=== PATIENT | female | born 1985 | race Caucasian/White ===

== ENCOUNTER 2017-02-03 16:31 | Emergency (ER) | payer SELFPAY ==
[~2017-02-03] VITALS: Ht 167.6 cm; Wt 47.6 kg
[~2017-02-03 16:31] MED LIST: CEFU500T PO; CYCL10TA9 PO; HYDR-3730 PO; MELO15TA14 PO; PREN1TAB39 PO; SULF1TAB35 PO; TRAM50TA2 PO; cefzil
--- OUTSIDE RECORDS SUMMARY | 2017-02-03 16:38 | XMS REPORT | Continuity of Care Document ---
Author Author [facility] Organization [facility] Address Unknown Phone Unavailable Care Team Providers Care Orthopaedic Technologist Name Role Phone JOSE JUAN BRYAN MD PCP Insurance Providers Payer Name Policy Number Subscriber Name Relationship [facility] [id number] Jung Olivares 18 Self / Same As Patient Advance Directives Directive Response Recorded Date/Time Advance Directives No 04/19/16 12:12pm Organ Donor No 08/18/11 8:30am Resuscitation Status Full Code 04/19/16 12:12pm Problems No problem information available. Medications Current Home Medications Medication Dose Units Route Directions Days/Qty Instructions Start Date Meloxicam 15 Mg 15 Mg Oral Daily as needed for Pain 04/19/16 Cyclobenzaprine Hcl 10 Mg 10 Mg Oral Three Times A Day as needed for Muscle Spasms 04/19/16 Past Home Medications Medication Directions Ordered Status Vits W-Ca,Fe,Fa(<1MG) 1 Each Tablet, 1 Tab Oral Daily 02/18/11 Discontinued Social History Social History Problem Response Recorded Date/Time Alcohol Use Occasionally Uses 04/19/2016 12:12pm Recreational Drug Use No 04/19/2016 12:12pm Recent Foreign Travel No 02/21/2014 2:56pm Recent Infectious Disease Exposure No 02/21/2014 2:56pm Hospitalization with Isolation Denies 04/19/2016 12:12pm Sexually Transmitted Disease No 02/21/2014 2:56pm Smoking Status Current Everyday Smoker 04/19/2016 12:15pm Query Response Start Date Stop Date Smoking Status Current Everyday Smoker Hospital Discharge Instructions No hospital discharge instructions. Plan of Care Discharge Date 04/19/16 12:19pm Prescriptions See Medication Section Functional Status No functional status results. Allergies, Adverse Reactions, Alerts No known allergies. Immunizations No immunization records. Vital Signs Acute Vital Signs Vital Response Date/Time Height (Feet) 5 feet 04/19/2016 12:12pm Height (Inches) 6.00 inches 04/19/2016 12:12pm Height (Calculated Centimeters) 167.044303 cm 04/19/2016 12:12pm Weight (Pounds) 111 pounds 04/19/2016 12:12pm Weight (Ounces) 0.0 oz 04/19/2016 12:12pm Weight (Calculated Grams) 68109.754 gm 04/19/2016 12:12pm Weight (Calculated Kilograms) 50.807259 kilograms 04/19/2016 12:12pm Calculated BMI 18.47 04/19/2016 12:12pm Results No known relevant diagnostic tests, laboratory data and/or discharge summary. Procedures No known history of procedures. Encounters Encounter Location Arrival/Admit Date Discharge/Depart Date Attending Provider Registered Clinic [facility] 04/19/16 12:11pm JOHNATHON ZEPEDA MD
[2017-02-03] MEDS ORDERED: Gabapentin (17:03)
[2017-02-03 17:19] LABS: BASOPHILS % (AUTO) 0 % (0-10); EOSINOPHILS # (AUTO) 0.2 10^3/uL (0.0-0.3); EOSINOPHILS % (AUTO) 3 % (0-10); LYMPHOCYTES # (AUTO) 2.4 X 10^3 (1.0-4.0); LYMPHOCYTES % (AUTO) 35 % (12-44); MEAN CORPUSCULAR HEMOGLOBIN 33 PG (25-34); MEAN CORPUSCULAR HGB CONC 35 G/DL (32-36); MEAN CORPUSCULAR VOLUME 92 FL (80-99); MONOCYTES # (AUTO) 0.5 X 10^3 (0.0-1.0); MONOCYTES % (AUTO) 8 % (0-12); NEUTROPHILS # (AUTO) 3.8 X 10^3 (1.8-7.8); NEUTROPHILS % (AUTO) 55 % (42-75); PLATELET COUNT 211 10^3/uL (130-400); RED BLOOD COUNT 4.29 10^6/uL (4.35-5.85); RED CELL DISTRIBUTION WIDTH 12.2 % (10.0-14.5); WHITE BLOOD COUNT 6.9 10^3/uL (4.3-11.0)
[2017-02-03 17:20] LABS: BILIRUBIN,URINE NEGATIVE (NEGATIVE); KETONES,URINE NEGATIVE (NEGATIVE); LEUKOCYTE ESTERASE ,URINE 2+ (NEGATIVE); NITRITE,URINE NEGATIVE (NEGATIVE); PH,URINE 6 (5-9); PROTEIN,URINE 1+ (NEGATIVE); UROBILINOGEN,URINE NORMAL (NORMAL)
[2017-02-03 17:39] LABS: ALANINE AMINOTRANSFERASE 18 U/L (0-55); ALBUMIN 4.2 G/DL (3.2-4.5); ANION GAP 8 MMOL/L (5-14); ASPARTATE AMINO TRANSFERASE 21 U/L (5-34); BILIRUBIN,TOTAL 0.5 MG/DL (0.1-1.0); BLOOD UREA NITROGEN 13 MG/DL (7-18); BUN/CREATININE RATIO 19; CALCIUM 8.7 MG/DL (8.5-10.1); CARBON DIOXIDE 22 MMOL/L (21-32); CHLORIDE 106 MMOL/L (98-107); GFR ESTIMATED > 60; GLUCOSE 94 MG/DL (70-105); POTASSIUM 3.6 MMOL/L (3.6-5.0); SODIUM 136 MMOL/L (135-145); TOTAL PROTEIN 6.6 G/DL (6.4-8.2)
--- NOTE | 2017-02-03 17:54 | Diagnostic Imaging Report ---
PROCEDURE: CT head without contrast. TECHNIQUE: Multiple contiguous axial images were obtained through the brain without the use of intravenous contrast. INDICATION: Seizure last night. COMPARISON STUDY: CT head from February 21, 2014. FINDINGS: Noncontrast CT scanning of the head demonstrates no mass effect, midline shift, hemorrhage or extra-axial fluid collections. Hope-white matter differentiation is normal. The ventricles, cortical sulci and basilar cisterns appear normal. There is normal appearance of the bone windows. IMPRESSION: Normal CT scan of the head. Dictated by: Dictated on workstation # [id number]
[2017-02-03] MEDS ORDERED: SULF1TAB35 PO (18:04)
--- NOTE | 2017-02-03 18:04 | ED General ---
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 Worked today 9-3. Pt at times answers questions briskly other times very slow to think. Nursing Sepsis Screen: No Definite Risk Source of Information: Patient Exam Limitations: No Limitations History of Present Illness Time Seen by Provider: 18:01 Initial Comments To ER with reports of a possible seizure last night though there was nothing witnessed by anyone. She states that she awakened this morning and felt somewhat disoriented and "foggy". She states that she is diffusely achy but is without fevers chills nausea vomiting back pain dysuria constipation or diarrhea. She states that she had a seizure in 2007 which manifested as her slumping over on the couch and then stiffening up and jerking. She is not on any seizure medications. She sees Dr. Dunaway at the [facility] and her only medication is gabapentin which she states that she takes for Crohn's disease. 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 Timing/Duration: 1-2 Days Severity: Moderate Associated Systoms: No Chest Pain, No Cough, No Diaphoresis, No Fever/Chills Allergies and Home Medications Allergies Coded Allergies: No Known Drug Allergies (Verified , 06/22/09) Home Medications (Reported) Constitutional: see HPINo chills, No fever EENTM: see HPI Respiratory: no symptoms reported Cardiovascular: no symptoms reported Genitourinary: no symptoms reported Musculoskeletal: see HPI other (diffuse body achiness) Skin: no symptoms reported Psychiatric/Neurological: No Symptoms Reported Hematologic/Lymphatic: No Symptoms Reported Immunological/Allergic: no symptoms reported Past Nuvljdi-Ttroyp-Ggtjdy Hx Patient Social History Alcohol Use: Rarely Uses Recreational Drug Use: No Smoking Status: Current Everyday Smoker Type Used: Cigarettes Recent Foreign Travel: No Contact w/Someone Who Travel: No Recent Infectious Disease Expo: No Recent Hopitalizations: No Seasonal Allergies Seasonal Allergies: No Surgeries HX Surgeries: Yes (D and C/vag delivery x 3, Tailbone cyst) Surgeries: Gallbladder Respiratory Hx Respiratory Disorders: No Cardiovascular Hx Cardiac Disorders: No Neurological Hx Neurological Disorders: No (Thinks a seizure in 2007/undiagnosed) Reproductive System : No Hx Reproductive Disorders: No Sexually Transmitted Disease: No Genitourinary Hx Genitourinary Disorders: No Gastrointestinal Hx Gastrointestinal Disorders: Yes Gastrointestinal Disorders: Crohns Disease Musculoskeletal Hx Musculoskeletal Disorders: Yes (Gabapentin for hip spasms/argueta) Endocrine Hx Endocrine Disorders: No HEENT HX ENT Disorders: No Cancer Hx Cancer: No Psychosocial Hx Psychiatric Problems: No Integumentary HX Skin/Integumentary Disorder: No Blood Transfusions Hx Blood Disorders: No Adverse Reaction to a Blood Tr: No Physical Exam Vital Signs Vital Sign - Last 12Hours 02/03/17 16:48 Temp 98.3 Pulse 75 Resp 16 B/P 107/76 Pulse Ox 96 O2 Delivery Room Air Capillary Refill : Less Than 3 Seconds General Appearance: No Apparent Distress WD/WN Eyes: Bilateral Eye EOMI, Bilateral Eye Normal Inspection, Bilateral Eye PERRL HEENT: PERRL/EOMI TMs Normal Neck: Full Range of Motion Normal Inspection Respiratory: Chest Non Tender Lungs Clear Normal Breath Sounds No Accessory Muscle Use No Respiratory Distress Cardiovascular: Regular Rate, Rhythm Normal Peripheral Pulses Gastrointestinal: Normal Bowel Sounds Non Tender Soft Extremity: Normal Capillary Refill Normal Inspection Neurologic/Psychiatric: Alert Oriented x3 No Motor/Sensory Deficits Skin: Normal Color Warm/Dry Focused Exam Lactic Acid Level Laboratory Tests Test 02/03/17 17:10 Alanine Aminotransferase (ALT/SGPT) 18U/L (0-55) Albumin 4.2G/DL (3.2-4.5) Alkaline Phosphatase 56U/L (40-136) Anion Gap 8MMOL/L (5-14) Aspartate Amino Transf (AST/SGOT) 21U/L (5-34) BUN/Creatinine Ratio 19 Blood Urea Nitrogen 13MG/DL (7-18) Calcium Level 8.7MG/DL (8.5-10.1) Carbon Dioxide Level 22MMOL/L (21-32) Chloride Level 106MMOL/L (98-107) Creatinine 0.70MG/DL (0.60-1.30) Estimat Glomerular Filtration Rate > 60 Glucose Level 94MG/DL (70-105) Potassium Level 3.6MMOL/L (3.6-5.0) Sodium Level 136MMOL/L (135-145) Total Bilirubin 0.5MG/DL (0.1-1.0) Total Protein 6.6G/DL (6.4-8.2) Progress/Results/Core Measures Results/Orders Lab Results Laboratory Tests Test 02/03/17 17:07 02/03/17 17:10 Range/Units Ur Tricyclic Antidepressants Screen NEGATIVE NEGATIVE Urine Amphetamines Screen NEGATIVE NEGATIVE Urine Bacteria LARGE H /HPF Urine Barbiturates Screen NEGATIVE NEGATIVE Urine Benzodiazepines Screen NEGATIVE NEGATIVE Urine Bilirubin NEGATIVE NEGATIVE Urine Cannabinoids Screen NEGATIVE NEGATIVE Urine Casts NONE /LPF Urine Clarity SLIGHTLY CLOUDY Urine Cocaine Screen NEGATIVE NEGATIVE Urine Color YELLOW Urine Crystals NONE /LPF Urine Culture Indicated YES Urine Glucose (UA) NEGATIVE NEGATIVE Urine Ketones NEGATIVE NEGATIVE Urine Leukocyte Esterase 2+ H NEGATIVE Urine Methadone Screen NEGATIVE NEGATIVE Urine Methamphetamines Screen NEGATIVE NEGATIVE Urine Mucus NEGATIVE /LPF Urine Nitrite NEGATIVE NEGATIVE Urine Opiates Screen NEGATIVE NEGATIVE Urine Oxycodone Screen NEGATIVE NEGATIVE Urine Phencyclidine Screen NEGATIVE NEGATIVE Urine Propoxyphene Screen NEGATIVE NEGATIVE Urine Protein 1+ H NEGATIVE Urine RBC 5-10 H /HPF Urine RBC (Auto) 4+ H NEGATIVE Urine Specific [place] 1.020 1.016-1.022 Urine Squamous Epithelial Cells 5-10 /HPF Urine Urobilinogen NORMAL NORMAL MG/DL Urine WBC 5-10 H /HPF Urine pH 6 5-9 Alanine Aminotransferase (ALT/SGPT) 18 0-55 U/L Albumin 4.2 3.2-4.5 G/DL Alkaline Phosphatase 56 40-136 U/L Anion Gap 8 5-14 MMOL/L Aspartate Amino Transf (AST/SGOT) 21 5-34 U/L BUN/Creatinine Ratio 19 Basophils # (Auto) 0.0 0.0-0.1 10^3/uL Basophils (%) (Auto) 0 0-10 % Blood Urea Nitrogen 13 7-18 MG/DL Calcium Level 8.7 8.5-10.1 MG/DL Carbon Dioxide Level 22 21-32 MMOL/L Chloride Level 106 98-107 MMOL/L Creatinine 0.70 0.60-1.30 MG/DL Eosinophils # (Auto) 0.2 0.0-0.3 10^3/uL Eosinophils (%) (Auto) 3 0-10 % Estimat Glomerular Filtration Rate > 60 Glucose Level 94 70-105 MG/DL Hematocrit 40 35-52 % Hemoglobin 14.0 11.5-16.0 G/DL Lymphocytes # (Auto) 2.4 1.0-4.0 X 10^3 Lymphocytes (%) (Auto) 35 12-44 % Mean Corpuscular Hemoglobin 33 25-34 PG Mean Corpuscular Hemoglobin Concent 35 32-36 G/DL Mean Corpuscular Volume 92 80-99 FL Mean Platelet Volume 11.0 H 7.4-10.4 FL Monocytes # (Auto) 0.5 0.0-1.0 X 10^3 Monocytes (%) (Auto) 8 0-12 % Neutrophils # (Auto) 3.8 1.8-7.8 X 10^3 Neutrophils (%) (Auto) 55 42-75 % Platelet Count 211 130-400 10^3/uL Potassium Level 3.6 3.6-5.0 MMOL/L Red Blood Count 4.29 L 4.35-5.85 10^6/uL Red Cell Distribution Width 12.2 10.0-14.5 % Sodium Level 136 135-145 MMOL/L Total Bilirubin 0.5 0.1-1.0 MG/DL Total Protein 6.6 6.4-8.2 G/DL White Blood Count 6.9 4.3-11.0 10^3/uL My Orders Orders-AINSLEY ENAMORADO APRN Cbc With Automated Diff (02/03/17 17:07) Comprehensive Metabolic Panel (02/03/17 17:07) Ua Culture If Indicated (02/03/17 17:07) Drug Screen Stat (Urine) (02/03/17 17:07) Urine Bedside (02/03/17 17:07) Ct Head Wo (02/03/17 17:07) Urine Culture (02/03/17 17:07) Vital Signs/I&O Vital Sign - Last 12Hours 02/03/17 16:48 Temp 98.3 Pulse 75 Resp 16 B/P 107/76 Pulse Ox 96 O2 Delivery Room Air Blood Pressure Mean: 86 Diagnostic Imaging Diagonstic Imaging: Xray Plain Films/CT/US/NM/MRI: chest Comments NAME: JUNG TREJO MED REC#: [id number] PT STATUS: REG ER : 1985 PHYSICIAN: AINSLEY ENAMORADO APRN ADMIT DATE: 02/03/17/ER Signed Date of Exam:02/03/17 CT HEAD WO PROCEDURE: CT head without contrast. TECHNIQUE: Multiple contiguous axial images were obtained through the brain without the use of intravenous contrast. INDICATION: Seizure last night. COMPARISON STUDY: CT head from February 21, 2014. FINDINGS: Noncontrast CT scanning of the head demonstrates no mass effect, midline shift, hemorrhage or extra-axial fluid collections. Hope-white matter differentiation is normal. The ventricles, cortical sulci and basilar cisterns appear normal. There is normal appearance of the bone windows. IMPRESSION: Normal CT scan of the head. Dictated by: Dictated on workstation # [id number] Dict: 02/03/171733 Trans: 02/03/171751 SLIM [id number] Interpreted by: ABEL GARCIA MD Electronically signed by: ABEL GARCIA MD 02/03/171753 Departure Impression Impression: Primary Impression: Urinary tract infection Qualified Code: N30.00 - Acute cystitis without hematuria Disposition: HOME, SELF-CARE Condition: Stable Departure-Patient Inst. Decision time for Depature: 18:03 Referrals: JOSE JUAN DUNAWAY MD (PCP/Family) Primary Care Physician Patient Instructions: Urinary Tract Infection, Adult (DC) Add. Discharge Instructions: 1. Antibiotics as directed 2. Return to ER for any concerns 3. See Dr. Dunaway asked week for recheck and to discuss further evaluation if you're still having symptoms All discharge instructions reviewed with patient and/or family. Voiced understanding. Scripts Sulfamethoxazole/Trimethoprim (Bactrim Ds Tablet)1 Each Tablet1 Each PO BID #10 TAB Prov:AINSLEY ENAMORADO APRN 02/03/17 AINSLEY ENAMORADO APRN Feb 03, 2017 18:04
[2017-02-03 18:10] VITALS: BP 102/68
== END 2017-02-03 18:10 | disposition home or self-care (01) ==
LOC: EDUNIT# 16:31 → ER 16:34
DX: N39.0 Urinary tract infection, site not specified (principal); K50.90 Crohn's disease, unspecified, without complications; F17.210 Nicotine dependence, cigarettes, uncomplicated
CPT/HCPCS: 36415; 70450; 80053; 80306; 81000; 84703; 85025; 87088; 99283

== ENCOUNTER → 2017-06-12 | Outpatient (CLI) | payer MEDICAID ==
[~2017-06-12] MED LIST changes: +Gabapentin
--- NOTE | 2017-06-12 12:46 | Diagnostic Imaging Report ---
INDICATION: Dating. TECHNIQUE: Multiple real-time grayscale images were obtained over the gravid uterus. COMPARISON: None FINDINGS: There is a single intrauterine . heart rate is 143 beats per minute. The placenta is anterior. No placenta previa. There is adequate amniotic fluid seen. The cervix closed and is 4.2 cm in length. Biometrical measurements are as follows: Biparietal 3.6 cm, age 17 weeks 1 days. Head circumference 13.89 cm, age 17 weeks 2 days. Abdominal circumference 12.39 cm, age 18 weeks 1 days. Femur length 2.5 cm, age 17 weeks 4 days. Sonographic estimate age: 17 weeks 4 days. Sonographic estimated date of delivery: 11/16/2017. Estimated Weight: 207 gm (+/- 30 gm). LMP percentile: n/a%. heart rate: 143 beats per minute. number: 1 of 1. IMPRESSION: Live intrauterine . survey in one to three weeks is suggested. Dictated by: Dictated on workstation # [id number]
== END ==
LOC: RAD 09:49
PROVIDERS: ATTEND Family Medicine
DX: Z36 Encounter for antenatal screening of mother (principal); Z3A.17 17 weeks gestation of pregnancy
CPT/HCPCS: 76805

== ENCOUNTER → 2017-07-03 | Outpatient (CLI) | payer MEDICAID ==
--- NOTE | 2017-07-03 13:46 | Diagnostic Imaging Report ---
INDICATION: survey. TECHNIQUE: Multiple real-time grayscale images were obtained over the gravid uterus. COMPARISON: 06/12/2017. FINDINGS: The previous OB ultrasound exam performed on 06/12/2017 noted a single live fetus of approximately 17 weeks 4 days gestation, +/-1 week. There were no abnormalities identified, but a followup exam was recommended for more sensitive evaluation of the anatomy. On this exam, the fetus is again visualized. The fetus is in breech presentation. heart motion was noted, and a rate of 152 BPM was recorded. There were no abnormalities identified. The growth parameters are fairly uniform and have progressed as expected since the prior exam. The placenta is anterior and on the left, and there is no previa. The amniotic fluid volume is within normal limits. IMPRESSION: 1. There is a single live fetus of approximately 20 weeks 4 days gestation, +/-1 week. The EDC remains November 16, 2017. 2. There were no abnormalities identified. 3. The growth parameters have progressed as expected since the prior exam. Biometrical measurements are as follows: Biparietal 4.68 cm, age 20 weeks 2 days. Head circumference 17.83 cm, age 20 weeks 3 days. Abdominal circumference 15.81 cm, age 21 weeks 0 days. Femur length 3.39 cm, age 20 weeks 5 days. Sonographic estimate age: 20 weeks 5 days. Sonographic estimated date of delivery: 11-15-17. Estimated Weight: 373 gm (+/- 55 gm). LMP percentile: 54%. heart rate: 152 beats per minute. number: 1 of 1. Dictated by: Dictated on workstation # [id number]
== END ==
LOC: RAD 12:21
PROVIDERS: ATTEND Family Medicine
DX: Z36 Encounter for antenatal screening of mother (principal); Z3A.20 20 weeks gestation of pregnancy
CPT/HCPCS: 76805

== ENCOUNTER 2017-08-03 05:15 | Outpatient (CLI) | payer MEDICAID ==
[~2017-08-03] VITALS: Ht 167.6 cm; Wt 55.5 kg
[2017-08-03 05:26] VITALS: BP 89/57
[2017-08-03 05:46] LABS: BILIRUBIN,URINE NEGATIVE (NEGATIVE); KETONES,URINE NEGATIVE (NEGATIVE); LEUKOCYTE ESTERASE ,URINE NEGATIVE (NEGATIVE); NITRITE,URINE NEGATIVE (NEGATIVE); PH,URINE 7 (5-9); PROTEIN,URINE NEGATIVE (NEGATIVE); UROBILINOGEN,URINE NORMAL (NORMAL)
[2017-08-03] MEDS ORDERED: PREN-53 PO (05:54)
[2017-08-03 06:03] VITALS: BP 90/53
--- NOTE | 2017-08-04 09:34 | Physician Query-Final Dx ---
ERICA LOPEZ 08/04/17 0934: Clinic Account Progress/Dx Physician Query: Please give diagnosis Date of Service Aug 03, 2017 at 05:15 OUSMANE LOPEZ MD 08/04/17 1004: Clinic Account Progress/Dx DIAGNOSIS: Diagnosis Urinary Tract Infection complicating ERICA LOPEZ Aug 04, 2017 09:34 OUSMANE LOPEZ MD Aug 04, 2017 10:04
== END 2017-08-03 06:10 | disposition home or self-care (01) ==
LOC: WSo 05:15 → LDRP 05:16 → WSo 06:10
PROVIDERS: ATTEND Family Medicine
DX: O23.42 Unspecified infection of urinary tract in pregnancy, second trimester (principal); Z3A.25 25 weeks gestation of pregnancy
CPT/HCPCS: 81000; 99213

== ENCOUNTER 2017-09-28 10:13 | Outpatient (CLI) | payer MEDICAID ==
[~2017-09-28] VITALS: Ht 167.6 cm; Wt 58.5 kg
[~2017-09-28 10:13] MED LIST changes: +PREN-53 PO
[2017-09-28 10:32] LABS: BILIRUBIN,URINE NEGATIVE (NEGATIVE); KETONES,URINE NEGATIVE (NEGATIVE); LEUKOCYTE ESTERASE ,URINE 3+ (NEGATIVE); NITRITE,URINE POSITIVE (NEGATIVE); PH,URINE 6.5 (5-9); PROTEIN,URINE 2+ (NEGATIVE); UROBILINOGEN,URINE 1 MG/DL (NORMAL)
[2017-09-28 11:00] VITALS: BP 108/65
[2017-09-28 11:03] LABS: WBC,URINE TNTC /HPF
[2017-09-28] MEDS ORDERED: NITR-65 PO (11:29)
[2017-09-28] MEDS ORDERED: INFLUENZA TRIvalent 2017-2018 0.5 ML/45 MCG SYR IM ONE (11:45)
--- NOTE | 2017-09-29 08:19 | Physician Query-Final Dx ---
ERICA LOPEZ 09/29/17 0819: Clinic Account Progress/Dx Physician Query: Please give diagnosis Date of Service Sep 28, 2017 at 10:13 EDI GIFFORD MD 10/02/17 0713: Clinic Account Progress/Dx DIAGNOSIS: Diagnosis 1. Uterine irritability--non labor 2. UTI 3. IUP in 3rd trimester ERICA LOPEZ Sep 29, 2017 08:19 EDI GIFFORD MD Oct 02, 2017 07:13
== END 2017-09-28 11:35 | disposition home or self-care (01) ==
LOC: WSo 10:13 → LDRP 10:13 → WSo 11:35
PROVIDERS: ATTEND Family Medicine
DX: O62.4 Hypertonic, incoordinate, and prolonged uterine contractions (principal); O23.93 Unspecified genitourinary tract infection in pregnancy, third trimester; Z3A.32 32 weeks gestation of pregnancy
CPT/HCPCS: 81000; 87088; 99213

== ENCOUNTER 2017-10-06 10:00 | Outpatient (CLI) | payer MEDICAID ==
[~2017-10-06] VITALS: Ht 167.6 cm; Wt 57.6 kg
[2017-10-06] VITALS (11 sets, daily range): BP systolic 101–113; BP diastolic 53–64
[~2017-10-06 10:00] MED LIST changes: +NITR-65 PO
[2017-10-06 10:15] LABS: BILIRUBIN,URINE NEGATIVE (NEGATIVE); KETONES,URINE 4+ (NEGATIVE); LEUKOCYTE ESTERASE ,URINE 1+ (NEGATIVE); NITRITE,URINE NEGATIVE (NEGATIVE); PH,URINE 6 (5-9); PROTEIN,URINE 2+ (NEGATIVE); UROBILINOGEN,URINE 1 MG/DL (NORMAL)
[2017-10-06] MEDS ORDERED: INFLUENZA TRIvalent 2017-2018 0.5 ML/45 MCG SYR IM ONE (10:45)
[2017-10-06] MEDS ORDERED: LACTATED RINGERS 1,000 ML IV SCH ×2 (11:00→11:45)
[2017-10-06] MEDS ORDERED: TERBUTALINE INJ 1 MG/ML (BRETHINE) AMP SC ONE ×2 (11:30→13:00)
--- NOTE | 2017-10-09 12:09 | Physician Query-Final Dx ---
ERICA LOPEZ 10/09/17 1209: Clinic Account Progress/Dx Physician Query: Please give diagnosis Date of Service Oct 06, 2017 at 10:00 EDI GIFFORD MD 10/10/174: Clinic Account Progress/Dx DIAGNOSIS: Diagnosis 1. IUP at 34 weeks, non labor 2. Uterine irritability ERICA LOPEZ Oct 09, 2017 12:09 EDI GIFFORD MD Oct 10, 2017 20:54
== END 2017-10-06 15:35 | disposition home or self-care (01) ==
LOC: LDRP 10:00 → WSo 10:00
PROVIDERS: ATTEND Family Medicine
DX: O99.89 Other specified diseases and conditions complicating pregnancy, childbirth and the puerperium (principal); N85.8 Other specified noninflammatory disorders of uterus; Z3A.34 34 weeks gestation of pregnancy
CPT/HCPCS: 81000; 87088; 96360; 96361; 96372; 99213

== ENCOUNTER 2017-10-09 14:22 | Inpatient (IN) | payer MEDICAID ==
[~2017-10-09] VITALS: Ht 167.6 cm; Wt 60.3 kg
[2017-10-09] VITALS (8 sets, daily range): BP systolic 99–108; BP diastolic 55–66
[2017-10-09] MEDS ORDERED: D5 LR IV SOLUTION 1,000 ML IV ONE (14:36)
[2017-10-09] MEDS ORDERED: AMPICILLIN INJECTION 2,000 MG in NS (IVPB) 50 ML IV SCH (14:47)
[2017-10-09] MEDS: D5 LR IV SOLUTION 1,000 ML IV SCH ×2 (14:50→23:43)
--- NOTE | 2017-10-09 15:23 | Diagnostic Imaging Report ---
INDICATION: Leaking fluid. TECHNIQUE: Multiple Real-time grayscale images were obtained over the gravid uterus. COMPARISON: None. FINDINGS: The heart rate is 144 BPM. The placenta is anterior. No placenta previa. The amniotic fluid index is 13.3 cm. The cervix is 4.3 cm in length and appears to be closed. The position is cephalic. IMPRESSION: The PALAK is 13.3. Dictated by: Dictated on workstation # [id number]
[2017-10-09] MEDS ORDERED: INFLUENZA TRIvalent 2017-2018 0.5 ML/45 MCG SYR IM ONE (16:45)
[2017-10-09 17:25] LABS: MEAN PLATELET VOLUME 11.2 FL (7.4-10.4); RED BLOOD COUNT 3.5 10^6/uL (4.35-5.85); RED CELL DISTRIBUTION WIDTH 13.2 % (10.0-14.5); WHITE BLOOD COUNT 11.6 10^3/uL (4.3-11.0)
[2017-10-09] MEDS: BETAMETHASONE ACE/NA PHOS 6 MG/ML (CELESTONE SOLUSPAN) IM SCH (17:30)
[2017-10-09 17:37] LABS: ALANINE AMINOTRANSFERASE 10 U/L (0-55); ANION GAP 8 MMOL/L (5-14); ASPARTATE AMINO TRANSFERASE 14 U/L (5-34); BILIRUBIN,TOTAL 0.3 MG/DL (0.1-1.0); BLOOD UREA NITROGEN 5 MG/DL (7-18); BUN/CREATININE RATIO 10; CALCIUM 8.5 MG/DL (8.5-10.1); CARBON DIOXIDE 24 MMOL/L (21-32); CHLORIDE 106 MMOL/L (98-107); CREATININE SERUM 0.52 MG/DL (0.60-1.30); GFR ESTIMATED > 60; GLUCOSE 91 MG/DL (70-105); POTASSIUM 3.1 MMOL/L (3.6-5.0); SODIUM 138 MMOL/L (135-145); TOTAL PROTEIN 6.1 GM/DL (6.4-8.2)
[2017-10-09] MEDS: AMPICILLIN INJECTION 1,000 MG in NS (IVPB) 50 ML IV SCH ×2 (18:50→22:31)
--- OUTSIDE RECORDS SUMMARY | 2017-10-09 19:23 | XMS REPORT ---
Author Author GELACIO ADRIAN Organization [employer] Address Unknown Phone Unavailable Care Team Providers Care Pals Nurse Name Role Phone GELACIO ADRIAN CP Unavailable Allergies No Known Allergies Problems Problem Type Condition Code Onset Dates Condition Status Problem General counseling for initiation of other contraceptive measures V25.02 Active Problem Health examination of defined subpopulation V70.5 Active Problem Screening-pulmonary TB V74.1 Active Assessment Encounter for immunization Z23 Active Assessment Encounter for TB bridger test Z11.1 Active Medications No Known Medications Procedures Procedure Coding System Code Date HEP B (ADULT) CPT-4 61763 March 21, 2016 VARICELLA CPT-4 36298 March 21, 2016 TDAP (BOOSTRIX) CPT-4 21294 March 21, 2016 IMMUNIZATION ADMIN, EACH ADD (please include units) CPT-4 11825 March 21, 2016 SINGLE IMMUNIZATION ADMIN CPT-4 26898 March 21, 2016 TB INTRADERMAL TEST CPT-4 52798 March 21, 2016 Results No Known Results Immunizations Vaccine Administration Date TDAP (BOOSTRIX) March 21, 2016 HEP B (ADULT) March 21, 2016 VARICELLA March 21, 2016 Summary Purpose [employer] Submission
[2017-10-10] VITALS (67 sets, daily range): BP systolic 80–112; BP diastolic 49–65
[2017-10-10] MEDS: AMPICILLIN INJECTION 1,000 MG in NS (IVPB) 50 ML IV SCH ×6 (03:05→23:01)
[2017-10-10] MEDS ORDERED: ACETAMINOPHEN 500 MG TAB (TYLENOL) PO ONE (05:15)
--- NOTE | 2017-10-10 07:12 | History & Physical-OB ---
OB - Chief Complaint & HPI Date/Time Date of Admission: Date of Admission: Oct 09, 2017 at 17:15 Time Seen by Provider: 17:00 Chief Complaint/History OB-Reason for Admission/Chief: Rupture of Membranes Hx : 4 Hx Para: 3 Expected Date of Delivery: Nov 16, 2017 Gestational Age in Weeks: 34 Gestational Age in Days: 4 Admission Nurse Assessment Rev: Yes History of Labs GBS positive Allergies and Home Medications Allergies Coded Allergies: No Known Drug Allergies (Verified , 06/22/09) Home Medications [id number]/Iron Fumarate/FA/Dss 1 Each Tablet, 1 EACH PO DAILY, (Reported) OB - History Hx of Present Care: Yes Ultrasounds: Normal mid trimester US Obstetrical Complications: None Medical Complications: None Obstetrical History Hx : 4 Hx Para: 3 Hx Termination: No Hx Multiple Gestation: No Hx Stillbirth: No Hx Complication: No Hx Induced Hypertens: No Hx Maternal Gestational Diabet: No Delivery History Hx Dystocia: No Hx Large For Gestational Age I: No Hx Small for Gestational Age I: No Hx Section: No Hx Vaginal Delivery Post C-Sec: No Hx Blood Disorders: No Adverse Rxn to Tranfusion: No Patient Past Medical History no chronic medical problems Social History/Family History Recent Infectious Disease Expo: No Sexually Transmitted Disease: No Immunizations Hepatitis B: Yes OB - Admission Exam Physical Exam Vitals: Vital Signs 10/10/17 01:05 Temp 98.9 Pulse 83 Resp 18 B/P (MAP) 93/51 O2 Delivery Room Air HEENT: Moist Membranes Heart: Rhythm Normal Lungs: Clear Abdomen: Gravid Extremities: Normal Cervical Dilatation: 1cm Effacement: 50% Membranes: Ruptured Heart Rate: 130's Accelerations: Accelerations Present Decelerations: No Decelerations Short Term Variability: Present Contractions on Admission: 6-10 Minutes Apart Labs Laboratory Tests Test 10/09/17 14:30 10/09/17 14:50 Range/Units Amniotic Fluid Ferning Test NEGATIVE NEGATIVE White Blood Count 11.6 H 4.3-11.0 10^3/uL Red Blood Count 3.50 L 4.35-5.85 10^6/uL Hemoglobin 11.9 11.5-16.0 G/DL Hematocrit 34 L 35-52 % Mean Corpuscular Volume 97 80-99 FL Mean Corpuscular Hemoglobin 34 25-34 PG Mean Corpuscular Hemoglobin Concent 35 32-36 G/DL Red Cell Distribution Width 13.2 10.0-14.5 % Platelet Count 228 130-400 10^3/uL Mean Platelet Volume 11.2 H 7.4-10.4 FL Sodium Level 138 135-145 MMOL/L Potassium Level 3.1 L 3.6-5.0 MMOL/L Chloride Level 106 98-107 MMOL/L Carbon Dioxide Level 24 21-32 MMOL/L Anion Gap 8 5-14 MMOL/L Blood Urea Nitrogen 5 L 7-18 MG/DL Creatinine 0.52 L 0.60-1.30 MG/DL Estimat Glomerular Filtration Rate > 60 BUN/Creatinine Ratio 10 Glucose Level 91 70-105 MG/DL Calcium Level 8.5 8.5-10.1 MG/DL Total Bilirubin 0.3 0.1-1.0 MG/DL Aspartate Amino Transf (AST/SGOT) 14 5-34 U/L Alanine Aminotransferase (ALT/SGPT) 10 0-55 U/L Alkaline Phosphatase 152 H 40-136 U/L Total Protein 6.1 L 6.4-8.2 GM/DL Albumin 3.0 L 3.2-4.5 GM/DL OB - Assessment/Plan/Diagnosis Assessment Assessment: rupture of membranes (at 34w4d) Plan Plan: Expectant Management Other Plan -ampicillin prot -betamethasone EDI GIFFORD MD Oct 10, 2017 07:12
[2017-10-10] MEDS ORDERED: OXYTOCIN/NORMAL SALINE 500 ML IV SCH ×2 (07:24→07:25)
[2017-10-10] MEDS: D5 LR IV SOLUTION 1,000 ML IV SCH ×2 (08:32→17:09)
[2017-10-10] MEDS ORDERED: INFLUENZA TRIvalent 2017-2018 0.5 ML/45 MCG SYR IM ONE (09:15)
--- NOTE | 2017-10-10 14:15 | Diagnostic Imaging Report ---
EXAMINATION: OB ultrasound. INDICATION: Evaluate PALAK and premature rupture of membranes. FINDINGS: heart rate is 128 beat per minutes. position is cephalic. The placenta is anterior and to the left with no placenta previa. PALAK is 7.9 CM compared to 13.3 CM on 10/09/2017. IMPRESSION: Interval decrease of the PALAK to 7.9 CM. Dictated by: Dictated on workstation # [id number]
--- NOTE | 2017-10-10 16:51 | Progress Note (SOAP) ---
Subjective Date Seen by Provider: Oct 10, 2017 Time Seen by Provider: 16:45 Subjective/Events-last exam Patient comfortable and in labor. No epidural. Objective Exam Vital Signs Date Time Temp Pulse Resp B/P (MAP) Pulse Ox O2 Delivery O2 Flow Rate FiO2 10/10/17 15:15 75 18 97/52 Room Air 10/10/17 15:00 76 18 95/54 Room Air 10/10/17 14:45 76 18 95/65 Room Air 10/10/17 14:30 99.1 81 18 102/57 Room Air 10/10/17 14:15 82 18 85/50 Room Air 10/10/17 14:00 78 18 96/53 Room Air 10/10/17 13:45 75 18 99/55 Room Air 10/10/17 13:30 90 18 97/61 Room Air 10/10/17 13:15 79 18 100/56 Room Air 10/10/17 13:00 74 18 105/57 Room Air 10/10/17 12:45 79 18 99/61 Room Air 10/10/17 12:30 81 18 106/60 Room Air 10/10/17 12:15 77 18 104/59 Room Air 10/10/17 12:00 18 Room Air 10/10/17 11:45 84 18 103/58 Room Air 10/10/17 11:30 81 18 95/61 Room Air 10/10/17 11:15 81 18 102/58 Room Air 10/10/17 11:00 80 18 94/57 Room Air 10/10/17 10:45 79 18 100/58 Room Air 10/10/17 10:30 90 18 107/55 Room Air 10/10/17 10:15 99.1 78 18 97/54 Room Air 10/10/17 10:00 67 18 94/55 Room Air 10/10/17 09:45 77 18 97/53 Room Air 10/10/17 09:30 18 Room Air 10/10/17 09:30 82 18 97/55 Room Air 10/10/17 09:15 93 18 99/56 Room Air 10/10/17 09:00 78 18 102/59 Room Air 10/10/17 08:45 75 18 105/59 Room Air 10/10/17 08:30 74 18 97/52 Room Air 10/10/17 08:15 80 18 100/62 Room Air 10/10/17 08:00 83 18 97/54 Room Air 10/10/17 07:45 77 18 99/57 Room Air 10/10/17 07:30 98.4 86 18 103/59 Room Air 10/10/17 07:30 77 18 99/57 Room Air 10/10/17 07:15 98.4 86 18 103/59 Room Air 10/10/17 01:05 98.9 83 18 93/51 Room Air 10/09/17 21:27 97.6 10/09/17 20:34 81 18 103/57 Room Air 10/09/17 19:35 89 18 102/57 Room Air 10/09/17 18:30 94 18 106/66 Room Air 10/09/17 17:30 83 18 103/60 Room Air 10/09/17 17:00 18 Room Air I & O 10/11/17 07:00 Intake Total 1100 ml Balance 1100 ml Capillary Refill : General Appearance: No Apparent Distress Other comments Cervix 2cm, 50-60% effaced, -3 station. Pitocin at 12mU/min. Assessment/Plan Assessment/Plan Assess & Plan/Chief Complaint 1. IUP at 34w5d gestation with SROM 10/09/2017 -pitocin continues Clinical Quality Measures DVT/VTE Risk/Contraindication: Risk Factor Score Per Nursin RFS Level Per Nursing on Admit: 1=Low/No VTE PPX EDI GIFFORD MD Oct 10, 2017 16:51
[2017-10-10] MEDS: BETAMETHASONE ACE/NA PHOS 6 MG/ML (CELESTONE SOLUSPAN) IM SCH (18:48)
--- NOTE | 2017-10-10 20:59 | Progress Note (SOAP) ---
Subjective Date Seen by Provider: Oct 10, 2017 Time Seen by Provider: 20:45 Subjective/Events-last exam patient currently in labor and dilated to 2-1/2 cm. She is now with very soft cervix exam vertex presenting part fairly well applied to the cervix. The Pitocin is at 22 mU/m. monitor is reactive. Mother does not have a fever and has not had a fever all day. Her white blood cell count yesterday evening was 11. Objective Exam Vital Signs Date Time Temp Pulse Resp B/P (MAP) Pulse Ox O2 Delivery O2 Flow Rate FiO2 10/10/17 19:00 85 18 96/54 Room Air 10/10/17 18:45 76 18 93/53 Room Air 10/10/17 18:30 72 18 80/49 Non Rebreather 15.00 10/10/17 18:15 98.1 74 18 93/52 Non Rebreather 15.00 10/10/17 18:00 80 18 95/53 Non Rebreather 15.00 10/10/17 17:45 80 18 95/53 Non Rebreather 15.00 10/10/17 17:30 75 18 93/55 Non Rebreather 15.00 10/10/17 17:15 72 18 94/53 Non Rebreather 15.00 10/10/17 17:00 71 18 92/53 Non Rebreather 15.00 10/10/17 16:45 74 18 101/59 Non Rebreather 15.00 10/10/17 16:30 71 18 91/50 Non Rebreather 15.00 10/10/17 16:15 72 18 89/61 Non Rebreather 15.00 10/10/17 16:00 63 18 82/53 Non Rebreather 15.00 10/10/17 15:45 98.4 68 18 88/55 Non Rebreather 15.00 10/10/17 15:30 71 18 90/53 Non Rebreather 15.00 10/10/17 15:15 75 18 97/52 Room Air 10/10/17 15:00 76 18 95/54 Room Air 10/10/17 14:45 76 18 95/65 Room Air 10/10/17 14:30 99.1 81 18 102/57 Room Air 10/10/17 14:15 82 18 85/50 Room Air 10/10/17 14:00 78 18 96/53 Room Air 10/10/17 13:45 75 18 99/55 Room Air 10/10/17 13:30 90 18 97/61 Room Air 10/10/17 13:15 79 18 100/56 Room Air 10/10/17 13:00 74 18 105/57 Room Air 10/10/17 12:45 79 18 99/61 Room Air 10/10/17 12:30 81 18 106/60 Room Air 10/10/17 12:15 77 18 104/59 Room Air 10/10/17 12:00 18 Room Air 10/10/17 11:45 84 18 103/58 Room Air 10/10/17 11:30 81 18 95/61 Room Air 10/10/17 11:15 81 18 102/58 Room Air 10/10/17 11:00 80 18 94/57 Room Air 10/10/17 10:45 79 18 100/58 Room Air 10/10/17 10:30 90 18 107/55 Room Air 10/10/17 10:15 99.1 78 18 97/54 Room Air 10/10/17 10:00 67 18 94/55 Room Air 10/10/17 09:45 77 18 97/53 Room Air 10/10/17 09:30 18 Room Air 10/10/17 09:30 82 18 97/55 Room Air 10/10/17 09:15 93 18 99/56 Room Air 10/10/17 09:00 78 18 102/59 Room Air 10/10/17 08:45 75 18 105/59 Room Air 10/10/17 08:30 74 18 97/52 Room Air 10/10/17 08:15 80 18 100/62 Room Air 10/10/17 08:00 83 18 97/54 Room Air 10/10/17 07:45 77 18 99/57 Room Air 10/10/17 07:30 98.4 86 18 103/59 Room Air 10/10/17 07:30 77 18 99/57 Room Air 10/10/17 07:15 98.4 86 18 103/59 Room Air 10/10/17 01:05 98.9 83 18 93/51 Room Air 10/09/17 21:27 97.6 I & O 10/11/17 07:00 Intake Total 2200 ml Balance 2200 ml Capillary Refill : General Appearance: No Apparent Distress Other comments cervix 2 and half centimeters, 60-70 percent cervical effacement at -2 station. monitoring is reactive Assessment/Plan Assessment/Plan Assess & Plan/Chief Complaint 1. IUP at 34w5d gestation with SROM 10/09/2017 -pitocin continues and is currently at 22 mU/m -Patient shows no signs of infection despite being with rupture membranes now at 36 hours. -Her progress was discussed with family, as well as herself. She is willing to continue with labor. -She does not have an epidural but she is very comfortable and rates her pain 1 out of 10. -Case has been discussed with OB educational interpreter. Clinical Quality Measures DVT/VTE Risk/Contraindication: Risk Factor Score Per Nursin RFS Level Per Nursing on Admit: 1=Low/No VTE PPX EDI GIFFORD MD Oct 10, 2017 20:59
[2017-10-11] VITALS (29 sets, daily range): BP systolic 81–117; BP diastolic 47–72
[2017-10-11] MEDS: D5 LR IV SOLUTION 1,000 ML IV SCH ×3 (01:48→23:23)
[2017-10-11] MEDS: AMPICILLIN INJECTION 1,000 MG in NS (IVPB) 50 ML IV SCH (04:43)
[2017-10-11 05:29] LABS: BASOPHILS % (AUTO) 0 % (0-10); EOSINOPHILS % (AUTO) 0 % (0-10); LYMPHOCYTES % (AUTO) 8 % (12-44); MEAN CORPUSCULAR HEMOGLOBIN 33 PG (25-34); MEAN CORPUSCULAR HGB CONC 34 G/DL (32-36); MEAN CORPUSCULAR VOLUME 96 FL (80-99); MEAN PLATELET VOLUME 10.5 FL (7.4-10.4); MONOCYTES # (AUTO) 0.4 X 10^3 (0.0-1.0); MONOCYTES % (AUTO) 3 % (0-12); NEUTROPHILS # (AUTO) 11.3 X 10^3 (1.8-7.8); NEUTROPHILS % (AUTO) 89 % (42-75); PLATELET COUNT 201 10^3/uL (130-400); RED BLOOD COUNT 3.66 10^6/uL (4.35-5.85); WHITE BLOOD COUNT 12.6 10^3/uL (4.3-11.0)
--- NOTE | 2017-10-11 05:31 | Progress Note (SOAP) ---
Subjective Date Seen by Provider: Oct 11, 2017 Time Seen by Provider: 05:25 Subjective/Events-last exam Patient received pitocin throughout the early am without any cervical change. Pitocin taken to a max of 24 mU/min to achieve contractions every q 2 min. monitor reactive. Objective Exam Vital Signs Date Time Temp Pulse Resp B/P (MAP) Pulse Ox O2 Delivery O2 Flow Rate FiO2 10/11/17 04:15 69 18 90/52 Non Rebreather 15.00 10/11/17 04:00 73 18 85/49 Non Rebreather 15.00 10/11/17 03:45 91 18 90/52 Non Rebreather 15.00 10/11/17 03:30 69 18 88/52 Non Rebreather 15.00 10/11/17 03:15 67 18 85/49 Non Rebreather 15.00 10/11/17 03:00 71 18 86/49 Non Rebreather 15.00 10/11/17 02:45 70 18 85/47 Non Rebreather 15.00 10/11/17 02:30 70 18 84/53 Non Rebreather 15.00 10/11/17 02:15 71 18 84/51 Non Rebreather 15.00 10/11/17 02:00 72 18 81/50 Non Rebreather 15.00 10/11/17 01:45 98.2 66 18 82/53 Non Rebreather 15.00 10/11/17 01:30 70 18 84/51 Non Rebreather 15.00 10/11/17 01:15 71 18 81/49 Non Rebreather 15.00 10/11/17 01:00 73 18 95/54 Non Rebreather 15.00 10/11/17 00:45 69 18 100/56 Non Rebreather 15.00 10/11/17 00:30 74 18 98/57 Non Rebreather 15.00 10/11/17 00:15 75 18 94/56 Non Rebreather 15.00 10/11/17 00:00 70 18 89/55 Non Rebreather 15.00 10/10/17 23:45 81 18 91/53 Room Air 10/10/17 23:30 77 18 92/54 Room Air 10/10/17 23:15 79 18 97/59 Room Air 10/10/17 23:00 98.6 68 18 91/50 Room Air 10/10/17 22:45 77 18 106/61 Room Air 10/10/17 22:30 83 18 99/54 Room Air 10/10/17 22:15 78 18 100/57 Room Air 10/10/17 22:00 80 18 100/62 Room Air 10/10/17 21:45 74 18 98/64 Room Air 10/10/17 21:30 80 18 101/55 Room Air 10/10/17 21:15 98.0 84 18 112/57 Room Air 10/10/17 21:00 81 18 99/61 Room Air 10/10/17 20:45 86 18 102/55 Room Air 10/10/17 20:30 75 18 104/55 Room Air 10/10/17 20:15 98.4 75 18 105/64 Room Air 10/10/17 20:00 80 18 96/61 Room Air 10/10/17 19:45 78 18 97/56 Room Air 10/10/17 19:30 84 18 103/54 Room Air 10/10/17 19:15 75 18 93/61 Room Air 10/10/17 19:00 85 18 96/54 Room Air 10/10/17 18:45 76 18 93/53 Room Air 10/10/17 18:30 72 18 80/49 Non Rebreather 15.00 10/10/17 18:15 98.1 74 18 93/52 Non Rebreather 15.00 10/10/17 18:00 80 18 95/53 Non Rebreather 15.00 10/10/17 17:45 80 18 95/53 Non Rebreather 15.00 10/10/17 17:30 75 18 93/55 Non Rebreather 15.00 10/10/17 17:15 72 18 94/53 Non Rebreather 15.00 10/10/17 17:00 71 18 92/53 Non Rebreather 15.00 10/10/17 16:45 74 18 101/59 Non Rebreather 15.00 10/10/17 16:30 71 18 91/50 Non Rebreather 15.00 10/10/17 16:15 72 18 89/61 Non Rebreather 15.00 10/10/17 16:00 63 18 82/53 Non Rebreather 15.00 10/10/17 15:45 98.4 68 18 88/55 Non Rebreather 15.00 10/10/17 15:30 71 18 90/53 Non Rebreather 15.00 10/10/17 15:15 75 18 97/52 Room Air 10/10/17 15:00 76 18 95/54 Room Air 10/10/17 14:45 76 18 95/65 Room Air 10/10/17 14:30 99.1 81 18 102/57 Room Air 10/10/17 14:15 82 18 85/50 Room Air 10/10/17 14:00 78 18 96/53 Room Air 10/10/17 13:45 75 18 99/55 Room Air 10/10/17 13:30 90 18 97/61 Room Air 10/10/17 13:15 79 18 100/56 Room Air 10/10/17 13:00 74 18 105/57 Room Air 10/10/17 12:45 79 18 99/61 Room Air 10/10/17 12:30 81 18 106/60 Room Air 10/10/17 12:15 77 18 104/59 Room Air 10/10/17 12:00 18 Room Air 10/10/17 11:45 84 18 103/58 Room Air 10/10/17 11:30 81 18 95/61 Room Air 10/10/17 11:15 81 18 102/58 Room Air 10/10/17 11:00 80 18 94/57 Room Air 10/10/17 10:45 79 18 100/58 Room Air 10/10/17 10:30 90 18 107/55 Room Air 10/10/17 10:15 99.1 78 18 97/54 Room Air 10/10/17 10:00 67 18 94/55 Room Air 10/10/17 09:45 77 18 97/53 Room Air 10/10/17 09:30 18 Room Air 10/10/17 09:30 82 18 97/55 Room Air 10/10/17 09:15 93 18 99/56 Room Air 10/10/17 09:00 78 18 102/59 Room Air 10/10/17 08:45 75 18 105/59 Room Air 10/10/17 08:30 74 18 97/52 Room Air 10/10/17 08:15 80 18 100/62 Room Air 10/10/17 08:00 83 18 97/54 Room Air 10/10/17 07:45 77 18 99/57 Room Air 10/10/17 07:30 98.4 86 18 103/59 Room Air 10/10/17 07:30 77 18 99/57 Room Air 10/10/17 07:15 98.4 86 18 103/59 Room Air Capillary Refill : General Appearance: No Apparent Distress Other comments Cervix 2 1/2, 60% effaced and -3 station. Assessment/Plan Assessment/Plan Assess & Plan/Chief Complaint 1. IUP at 34w5d gestation with SROM 10/09/2017 10/11/2017 @ 0525 -long discussion with patient and father of baby regarding condition and no change of cervix. With no change of cervix despite adequate labor they agree with CS. -Case discussed with Dr Beal and will proceed with primary LTCS due to failure to progress Clinical Quality Measures DVT/VTE Risk/Contraindication: Risk Factor Score Per Nursin RFS Level Per Nursing on Admit: 1=Low/No VTE PPX EDI GIFFORD MD Oct 11, 2017 05:31
[2017-10-11] MEDS ORDERED: CITRIC ACID/SOB CIT (BICITRA) 30 ML UDC ONE (06:21)
[2017-10-11] MEDS ORDERED: METOCLOPRAMIDE INJ 10 MG/2 ML (REGLAN) ONE (06:21)
[2017-10-11] MEDS ORDERED: FAMOTIDINE 20MG/2ML IV (PEPCID) ONE (06:22)
[2017-10-11] MEDS ORDERED: LACTATED RINGERS 2,000 ML IV ONE (06:22)
[2017-10-11] MEDS ORDERED: LACTATED RINGERS 1,000 ML IV PRN (06:31)
[2017-10-11] MEDS ORDERED: fentaNYL INJECTION 100 MCG/2 ML AMP ONE (06:38)
[2017-10-11] MEDS ORDERED: OXYTOCIN/NORMAL SALINE 1,000 ML IV ONE (06:38)
[2017-10-11] MEDS: LACTATED RINGERS 1,000 ML IV PRN ×2 (06:39→07:15)
[2017-10-11] MEDS ORDERED: METOCLOPRAMIDE INJ 10 MG/2 ML (REGLAN) IV ONE (06:45)
[2017-10-11] MEDS ORDERED: FAMOTIDINE 20MG/2ML IV (PEPCID) IV ONE (06:45)
[2017-10-11] MEDS ORDERED: CITRIC ACID/SOB CIT (BICITRA) 30 ML UDC PO ONE (06:45)
[2017-10-11] MEDS ORDERED: NS (IVPB) 50 ML ONE ×2 (06:46→12:32)
[2017-10-11] MEDS ORDERED: AZITHROMYCIN 500 MG (ZITHROMAX) VIAL ONE (06:46)
--- NOTE | 2017-10-11 06:50 | Progress Note-Pre Operative ---
Pre-Operative Progress Note H&P Reviewed The H&P was reviewed, patient examined and no changes noted. Date Seen by Provider: Oct 11, 2017 Time Seen by Provider: 06:35 Date H&P Reviewed: Oct 10, 2017 Time H&P Reviewed: 20:30 Pre-Operative Diagnosis: PPROM, failed to progress. FABIOLA UMANA DO Oct 11, 2017 06:49
[2017-10-11] MEDS ORDERED: ceFAZolin 2 GM/50 ML NS 50 ML IV ONE (07:00)
[2017-10-11] MEDS ORDERED: ONDANSETRON 4 MG/2 ML (SDV) Z0FRAN ONE (07:52)
[2017-10-11] MEDS ORDERED: OXYTOCIN/NORMAL SALINE 500 ML IV SCH (08:20)
--- NOTE | 2017-10-11 08:20 | Cesarean Section Operative ---
Procedure Procedure Note Pre-operative Diagnosis: Madhavi Olivares is a 31 /Para 4 / 3, Gestational Age 34 6/7 weeks, PPROM, prolonged rupture of membranes, failure to progress, Post-operative Diagnosis: same partial accreta Procedure: Primary low transverse section Physician: FABIOLA UMANA Sales Service Promoter: Herminio Petersen MD Estimated blood loss: 500 mL Disposition: stable Findings: Viable male infant, Apgars 8/9, weight 5#10 oz, partial accreta placenta, 3vc, normal appearing uterus, tubes, and ovaries. Indications:Madhavi Olivares is a 31 /Para 4 / 3,Gestational Age 34 6/7 weeks, PPROM, prolonged rupture of membranes, failure to progress, Procedure Details: The patient was seen in pre-op and the procedure was discussed with the patient in full, including the risks, benefits, and alternatives. All questions were answered. The patient was taken to the operating room and a time out was performed, verifying patient and procedure. she was admitted 10/[address] Petersen with rupture of membranes. She was given betamethasone and started on ampicillin and monitored for signs of labor. On 10/10/17, oxytocin was started as she did not progress into labor spontaneously. She had adequate contractions but never progressed past 2 cm. The head, at one point, was suggested to be transverse and US confirmed cephalic presentation. She had a category I strip but at times, there was suggestion of decelerations and Pitocin was stopped. When this was stopped, the contractions stopped. Dr. Petersen discussed with me on 10/10/17 regarding plan. At that time, there was no evidence of infection, no fever, no tenderness , clear fluid, so the decision was made to continue with Pitocin and increase dose. This morning, however, she had not progressed into active labor, and, had been ruptured > 36 hours. Still without signs of infection and normal white count. However, she was having occasional subtle late decelerations, so the decision was made to proceed with primary section. She was given a prophylactic dose of Ancef and Zithromax due to prolonged rupture of membranes. After spinal anesthesia was placed by our anesthesia colleagues, the patient was placed in the dorsal supine with leftward tilt for uterine displacement.~ Her abdomen was then prepped and draped in the typical sterile fashion. A Pfannenstiel skin incision was made using a scalpel and carried down through the underlying fascia. The fascia was incised in the midline and tented up using Isrrael clamps. On both the inferior and superior fascia side the rectus muscle was dissected off bluntly and sharply using Luis scissors. The peritoneum was identified and entered bluntly in the midline. This was then stretched laterally using manual strength. After entering the abdominal cavity and confirming lack of intraperitoneal adhesions, a large Santi retractor was placed and the lower uterine segment was visualized.~ A scalpel was utilized to make a low transverse uterine incision. The 's head was grasped and brought to the level of the incision. Fundal pressure was applied and was delivered without difficulty. Mouth and nares were suctioned with bulb suction. After the umbilical cord was clamped and cut, the was handed off to the pediatric staff. A sample of cord blood was then obtained. The placenta was delivered with much difficulty. there was a partial accreta at the right fundal position. I delivered this manually. There was good hemostasis. The uterus was exteriorized and cleared of all clots and debris. The uterine incision was closed using 0 Vicryl in a running locked fashion. A second imbricated layer was placed using 0 Vicryl in a running fashion as well. The uterus was flexed forward and the posterior rectouterine space was inspected and cleared of all clots and debris. Again the hysterotomy site was examined and hemostasis was observed. The bilateral tubes and ovaries appeared normal. The uterus was placed back into the abdominal cavity and abdominal gutters were cleared of all clots and debris. A final check of the uterine incision showed it to be hemostatic. The peritoneum was closed using 3-0 Vicryl in a running fashion. The fascia was closed with 0 Vicryl in a running fashion. The subcutaneous space was hemostatic, and irrigated. The subcutaneous space was closed with 3-0 Plain in several single interrupted stitches. The skin was then closed using 4-0 Monocryl in a running subcuticular fashion. The skin edges were reapproximated together and were hemostatic. Dermabond was placed. A pressure dressing was applied. All sponge, lap and needle counts were correct at the end of the procedure per nursing. Vitals - Labs Vital Signs - I&O Vital Signs Date Time Temp Pulse Resp B/P (MAP) Pulse Ox O2 Delivery O2 Flow Rate FiO2 10/11/17 06:58 77 18 102/58 Room Air 10/11/17 06:30 98.7 74 18 102/62 Room Air 10/11/17 05:15 76 18 94/58 Room Air 10/11/17 05:00 98.8 83 18 105/62 Room Air 10/11/17 04:45 73 18 87/49 Non Rebreather 15.00 10/11/17 04:30 78 18 93/51 Non Rebreather 15.00 10/11/17 04:15 69 18 90/52 Non Rebreather 15.00 10/11/17 04:00 73 18 85/49 Non Rebreather 15.00 10/11/17 03:45 91 18 90/52 Non Rebreather 15.00 10/11/17 03:30 69 18 88/52 Non Rebreather 15.00 10/11/17 03:15 67 18 85/49 Non Rebreather 15.00 10/11/17 03:00 71 18 86/49 Non Rebreather 15.00 10/11/17 02:45 70 18 85/47 Non Rebreather 15.00 10/11/17 02:30 70 18 84/53 Non Rebreather 15.00 10/11/17 02:15 71 18 84/51 Non Rebreather 15.00 10/11/17 02:00 72 18 81/50 Non Rebreather 15.00 10/11/17 01:45 98.2 66 18 82/53 Non Rebreather 15.00 10/11/17 01:30 70 18 84/51 Non Rebreather 15.00 10/11/17 01:15 71 18 81/49 Non Rebreather 15.00 10/11/17 01:00 73 18 95/54 Non Rebreather 15.00 10/11/17 00:45 69 18 100/56 Non Rebreather 15.00 10/11/17 00:30 74 18 98/57 Non Rebreather 15.00 10/11/17 00:15 75 18 94/56 Non Rebreather 15.00 10/11/17 00:00 70 18 89/55 Non Rebreather 15.00 10/10/17 23:45 81 18 91/53 Room Air 10/10/17 23:30 77 18 92/54 Room Air 10/10/17 23:15 79 18 97/59 Room Air 10/10/17 23:00 98.6 68 18 91/50 Room Air 10/10/17 22:45 77 18 106/61 Room Air 10/10/17 22:30 83 18 99/54 Room Air 10/10/17 22:15 78 18 100/57 Room Air 10/10/17 22:00 80 18 100/62 Room Air 10/10/17 21:45 74 18 98/64 Room Air 10/10/17 21:30 80 18 101/55 Room Air 10/10/17 21:15 98.0 84 18 112/57 Room Air 10/10/17 21:00 81 18 99/61 Room Air 10/10/17 20:45 86 18 102/55 Room Air 10/10/17 20:30 75 18 104/55 Room Air 10/10/17 20:15 98.4 75 18 105/64 Room Air 10/10/17 20:00 80 18 96/61 Room Air 10/10/17 19:45 78 18 97/56 Room Air 10/10/17 19:30 84 18 103/54 Room Air 10/10/17 19:15 75 18 93/61 Room Air 10/10/17 19:00 85 18 96/54 Room Air 10/10/17 18:45 76 18 93/53 Room Air 10/10/17 18:30 72 18 80/49 Non Rebreather 15.00 10/10/17 18:15 98.1 74 18 93/52 Non Rebreather 15.00 10/10/17 18:00 80 18 95/53 Non Rebreather 15.00 10/10/17 17:45 80 18 95/53 Non Rebreather 15.00 10/10/17 17:30 75 18 93/55 Non Rebreather 15.00 10/10/17 17:15 72 18 94/53 Non Rebreather 15.00 10/10/17 17:00 71 18 92/53 Non Rebreather 15.00 10/10/17 16:45 74 18 101/59 Non Rebreather 15.00 10/10/17 16:30 71 18 91/50 Non Rebreather 15.00 10/10/17 16:15 72 18 89/61 Non Rebreather 15.00 10/10/17 16:00 63 18 82/53 Non Rebreather 15.00 10/10/17 15:45 98.4 68 18 88/55 Non Rebreather 15.00 10/10/17 15:30 71 18 90/53 Non Rebreather 15.00 10/10/17 15:15 75 18 97/52 Room Air 10/10/17 15:00 76 18 95/54 Room Air 10/10/17 14:45 76 18 95/65 Room Air 10/10/17 14:30 99.1 81 18 102/57 Room Air 10/10/17 14:15 82 18 85/50 Room Air 10/10/17 14:00 78 18 96/53 Room Air 10/10/17 13:45 75 18 99/55 Room Air 10/10/17 13:30 90 18 97/61 Room Air 10/10/17 13:15 79 18 100/56 Room Air 10/10/17 13:00 74 18 105/57 Room Air 10/10/17 12:45 79 18 99/61 Room Air 10/10/17 12:30 81 18 106/60 Room Air 10/10/17 12:15 77 18 104/59 Room Air 10/10/17 12:00 18 Room Air 10/10/17 11:45 84 18 103/58 Room Air 10/10/17 11:30 81 18 95/61 Room Air 10/10/17 11:15 81 18 102/58 Room Air 10/10/17 11:00 80 18 94/57 Room Air 10/10/17 10:45 79 18 100/58 Room Air 10/10/17 10:30 90 18 107/55 Room Air 10/10/17 10:15 99.1 78 18 97/54 Room Air 10/10/17 10:00 67 18 94/55 Room Air 10/10/17 09:45 77 18 97/53 Room Air 10/10/17 09:30 18 Room Air 10/10/17 09:30 82 18 97/55 Room Air 10/10/17 09:15 93 18 99/56 Room Air 10/10/17 09:00 78 18 102/59 Room Air 10/10/17 08:45 75 18 105/59 Room Air 10/10/17 08:30 74 18 97/52 Room Air 10/10/17 08:15 80 18 100/62 Room Air I & O 10/12/17 07:00 Intake Total 1300 ml Balance 1300 ml Labs Laboratory Tests 10/11/17 05:20: White Blood Count 12.6H, Red Blood Count 3.66L, Hemoglobin 12.1, Hematocrit 35, Mean Corpuscular Volume 96, Mean Corpuscular Hemoglobin 33, Mean Corpuscular Hemoglobin Concent 34, Red Cell Distribution Width 13.0, Platelet Count 201, Mean Platelet Volume 10.5H, Neutrophils (%) (Auto) 89H, Lymphocytes (%) (Auto) 8L, Monocytes (%) (Auto) 3, Eosinophils (%) (Auto) 0, Basophils (%) (Auto) 0, Neutrophils # (Auto) 11.3H, Lymphocytes # (Auto) 1.0, Monocytes # (Auto) 0.4, Eosinophils # (Auto) 0.0, Basophils # (Auto) 0.0 FABIOLA UMANA DO Oct 11, 2017 08:19
[2017-10-11] MEDS ORDERED: METHYLERGONOVINE 0.2 MG/ML (METHERGINE) AMP IM ONE (08:30)
[2017-10-11] MEDS ORDERED: HYDROmorphone (DILAUDID) 2 MG/ML VIAL IVP PRN (08:30)
[2017-10-11] MEDS ORDERED: MEASLES,MUMPS,RUBELLA 1 EA INJ SC SCH (08:30)
[2017-10-11] MEDS ORDERED: TETANUS,DIPTH,PERTUSS P/F (BOOSTRIX) 0.5 ML VIAL IM SCH (08:30)
[2017-10-11] MEDS: KETOROLAC 30 MG/ML VIAL IVP SCH ×3 (08:31→20:14)
[2017-10-11] MEDS ORDERED: AZITHROMYCIN INJECTION 500 MG in NS (IVPB) 250 ML IV SCH (09:00)
[2017-10-11] MEDS: DOCUSATE SODIUM 100 MG (COLACE) CAP PO SCH ×2 (09:00→21:40)
[2017-10-11] MEDS: HYDROcodone/APAP 5 MG/325 MG (LORTAB) TAB PO PRN ×2 (11:36→20:14)
[2017-10-11] MEDS ORDERED: ceFAZolin 1,000 MG (ANCEF) VIAL ONE (12:31)
[2017-10-11] MEDS: CATHETER FLUSH 10 ML SYR IV SCH ×2 (14:49→22:00)
[2017-10-11] MEDS: METHYLERGONOVINE 0.2 MG (MEHTERGINE) TAB PO SCH ×2 (18:50→23:22)
[2017-10-11] MEDS: ceFAZolin INJECTION 1,000 MG in NS (IVPB) 50 ML IV SCH (21:41)
[2017-10-12] MEDS: CATHETER FLUSH 10 ML SYR IV SCH ×2 (02:27→14:00)
[2017-10-12] MEDS: KETOROLAC 30 MG/ML VIAL IVP SCH (02:27)
[2017-10-12 02:40] VITALS: BP 113/75
[2017-10-12 05:28] LABS: BASOPHILS % (AUTO) 0 % (0-10); EOSINOPHILS % (AUTO) 0 % (0-10); LYMPHOCYTES # (AUTO) 1.2 X 10^3 (1.0-4.0); LYMPHOCYTES % (AUTO) 8 % (12-44); MEAN CORPUSCULAR HEMOGLOBIN 34 PG (25-34); MEAN CORPUSCULAR HGB CONC 35 G/DL (32-36); MEAN CORPUSCULAR VOLUME 98 FL (80-99); MEAN PLATELET VOLUME 10.7 FL (7.4-10.4); MONOCYTES # (AUTO) 0.9 X 10^3 (0.0-1.0); MONOCYTES % (AUTO) 6 % (0-12); NEUTROPHILS % (AUTO) 86 % (42-75); PLATELET COUNT 207 10^3/uL (130-400); RED BLOOD COUNT 3.29 10^6/uL (4.35-5.85); WHITE BLOOD COUNT 15.1 10^3/uL (4.3-11.0)
[2017-10-12 06:21] VITALS: BP 99/65
[2017-10-12] MEDS: ceFAZolin INJECTION 1,000 MG in NS (IVPB) 50 ML IV SCH (06:48)
[2017-10-12 08:45] VITALS: BP 100/66
[2017-10-12] MEDS ORDERED: INFLUENZA TRIvalent 2017-2018 0.5 ML/45 MCG SYR IM ONE (08:46)
[2017-10-12] MEDS: METHYLERGONOVINE 0.2 MG (MEHTERGINE) TAB PO SCH (08:59)
[2017-10-12] MEDS: IBUPROFEN 600 MG (MOTRIN) TAB PO SCH ×3 (09:00→22:04)
[2017-10-12] MEDS: HYDROcodone/APAP 5 MG/325 MG (LORTAB) TAB PO PRN (09:00)
[2017-10-12] MEDS: DOCUSATE SODIUM 100 MG (COLACE) CAP PO SCH ×2 (09:00→22:04)
--- NOTE | 2017-10-12 09:36 | Discharge Inst-Women's Service ---
Discharge Inst-Women's Serv Depart Medication/Instructions New, Converted or Re-Newed RX: RX on Chart Consults/Follow Up Additional Follow Up: Yes Orders/Referrals Dr. Beal in 7-[address] Petersen in 6 weeks Activity Activity: Activity as Tolerated Driving Instructions: No Driving for 1 Week NO SMOKING: NO SMOKING Nothing Inside Vagina: No Douching, No [place], No Tampons Diet Discharge Diet: No Restrictions Symptoms to Report to : Bleeding Excessive, Pain Increased, Fever Over 101 Degrees F, Vaginal Bleeding Increase, Questions/Concerns For Any Problems or Questions: Contact Your Physician Skin/Wound Care Infection Signs and Symptoms: Increased Redness, Foul Odor of Wound, Increased Drainage, Skin Itchy or Has a Rash, Increased Swelling, Temperature Above 101 F Operative Area Clean and Dry: Keep Incision Clean/Dry Stitches/[place]/Dermabond: Dermabond, Care of Stitches Bathing Instructions: GELACIO Gunn DO Oct 12, 2017 09:36
[2017-10-12] MEDS ORDERED: DOCU100C37 PO (09:37)
[2017-10-12] MEDS ORDERED: Hydrocodone Bit/Acetaminophen PO (09:37)
[2017-10-12] MEDS ORDERED: IBUP-1773 PO (09:37)
--- NOTE | 2017-10-12 09:58 | Progress Note-Standard ---
Standard Progress Note Progress Notes/Assess & Plan Date Seen by Provider: Oct 12, 2017 Time Seen by Provider: 09:30 Progress/Assessment & Plan Patient doing well POD 1 LTCS. She is and has no complaints. Pain well controlled. Ambulating and voiding freely. Lochia light Vital Sign - Last 24 Hours 10/11/17 10/11/17 10/11/17 10/11/17 10:50 14:45 18:50 23:15 Temp 97.2 97.8 98.3 97.7 Pulse 56 87 91 70 Resp 18 B/P (MAP) 117/72 99/62 98/61 96/65 Pulse Ox 100 98 97 97 O2 Delivery Room Air Room Air Room Air Room Air 10/12/17 10/12/17 10/12/17 02:40 06:21 08:45 Temp 96.9 96.9 98.0 Pulse 63 73 65 Resp 18 B/P (MAP) 113/75 99/65 100/66 Pulse Ox 97 98 99 O2 Delivery Room Air Room Air Room Air Incision: c/d/i Laboratory Tests Test 10/12/17 05:20 Range/Units White Blood Count 15.1 H 4.3-11.0 10^3/uL Red Blood Count 3.29 L 4.35-5.85 10^6/uL Hemoglobin 11.1 L 11.5-16.0 G/DL Hematocrit 32 L 35-52 % Mean Corpuscular Volume 98 80-99 FL Mean Corpuscular Hemoglobin 34 25-34 PG Mean Corpuscular Hemoglobin Concent 35 32-36 G/DL Red Cell Distribution Width 13.0 10.0-14.5 % Platelet Count 207 130-400 10^3/uL Mean Platelet Volume 10.7 H 7.4-10.4 FL Neutrophils (%) (Auto) 86 H 42-75 % Lymphocytes (%) (Auto) 8 L 12-44 % Monocytes (%) (Auto) 6 0-12 % Eosinophils (%) (Auto) 0 0-10 % Basophils (%) (Auto) 0 0-10 % Neutrophils # (Auto) 13.0 H 1.8-7.8 X 10^3 Lymphocytes # (Auto) 1.2 1.0-4.0 X 10^3 Monocytes # (Auto) 0.9 0.0-1.0 X 10^3 Eosinophils # (Auto) 0.0 0.0-0.3 10^3/uL Basophils # (Auto) 0.0 0.0-0.1 10^3/uL Diagnosis: POD 1 LTCS P: Routine PO care Anticipate dc tomorrow GELACIO LINDA DO Oct 12, 2017 9:58 am
[2017-10-12 12:00] VITALS: BP 101/66
[2017-10-12 16:30] VITALS: BP 96/58
[2017-10-12 22:00] VITALS: BP 97/56
[2017-10-13 04:17] VITALS: BP 90/55
[2017-10-13] MEDS: HYDROcodone/APAP 5 MG/325 MG (LORTAB) TAB PO PRN (04:17)
[2017-10-13] MEDS: IBUPROFEN 600 MG (MOTRIN) TAB PO SCH ×2 (04:17→10:15)
--- NOTE | 2017-10-13 07:17 | Progress Note-Standard ---
Standard Progress Note Progress Notes/Assess & Plan Date Seen by Provider: Oct 13, 2017 Time Seen by Provider: 07:35 Progress/Assessment & Plan Patient doing well POD 2 LTCS. She is and has no complaints. Pain well controlled. Ambulating and voiding freely. Lochia light Vital Sign - Last 24 Hours 10/12/17 10/12/17 10/12/17 10/12/17 08:45 12:00 16:30 22:00 Temp 98.0 97.5 97.6 97.0 Pulse 65 72 77 68 Resp 18 18 18 18 B/P (MAP) 100/66 101/66 96/58 97/56 Pulse Ox 99 98 98 O2 Delivery Room Air Room Air Room Air Room Air 10/13/17 04:17 Temp 96.9 Pulse 71 Resp 18 B/P (MAP) 90/55 O2 Delivery Room Air Incision: c/d/i Diagnosis: POD 2 LTCS P: Routine PO care Anticipate dc today GELACIO LINDA DO Oct 13, 2017 7:17 am
[2017-10-13 08:28] VITALS: BP 109/71
[2017-10-13] MEDS: DOCUSATE SODIUM 100 MG (COLACE) CAP PO SCH (08:28)
== END 2017-10-13 11:25 | disposition home or self-care (01) | DRG 765 ==
LOC: WSo 14:22 → LDRP 14:22 → UNDOADMOB 17:15 → WSo 17:15 → OBSVTOIN 10-10 07:23 → INTOOBSV 10-10 07:23 → LDRP 10-11 09:01 → UNDODISIN 10-13 11:25 → EDSTATUS 10-16 10:51
PROVIDERS: ADMIT Family Medicine; ATTEND Family Medicine
PROC: 10D00Z1 Extraction of Products of Conception, Low, Open Approach (ICD-10-PCS; principal; 2017-10-11 07:02)
DX: O42.113 Preterm premature rupture of membranes, onset of labor more than 24 hours following rupture, third trimester (principal); O60.14X0 Preterm labor third trimester with preterm delivery third trimester, not applicable or unspecified; O66.40 Failed trial of labor, unspecified; O76 Abnormality in fetal heart rate and rhythm complicating labor and delivery; O43.213 Placenta accreta, third trimester; Z3A.34 34 weeks gestation of pregnancy; Z37.0 Single live birth; Z23 Encounter for immunization
CPT/HCPCS: 36415; 76815; 76816; 80053; 85025; 85027; 86850; 86900; 86901; 89060; 90715; 94664; 99212

== ENCOUNTER → 2018-11-01 | Outpatient (CLI) | payer MEDICAID ==
[~2018-11-01] MED LIST changes: +DOCU100C37 PO; +Hydrocodone Bit/Acetaminophen PO; +IBUP-1773 PO
--- NOTE | 2018-11-01 13:18 | Diagnostic Imaging Report ---
INDICATION: SI joint pain and irritation. AP and oblique views of the SI joints are obtained. SI joints appear unremarkable with no significant degenerative change. There is no acute fracture or acute bony abnormality. Sacral foramina appear normal. IMPRESSION: Unremarkable SI joints. Dictated by: Dictated on workstation # [id number]
== END ==
LOC: RAD 11:03
PROVIDERS: ATTEND Family Medicine
DX: M53.3 Sacrococcygeal disorders, not elsewhere classified (principal)
CPT/HCPCS: 72202

== ENCOUNTER 2019-08-27 11:07 | Outpatient (CLI) | payer MEDICAID ==
[~2019-08-27] VITALS: Ht 167.7 cm; Wt 53.6 kg
[2019-08-27 11:15] VITALS: BP 107/62
[2019-08-27] MEDS ORDERED: PARO10TA81 PO (11:20)
[2019-08-27] MEDS ORDERED: MELO15TA39 PO (11:20)
[2019-08-27] MEDS ORDERED: PARO20TA5 PO (11:47)
[2019-08-27] MEDS ORDERED: CLON0.5T13 PO (11:48)
[2019-08-27 11:56] LABS: BASOPHILS % (AUTO) 0 % (0-10); EOSINOPHILS # (AUTO) 0.2 10^3/uL (0.0-0.3); EOSINOPHILS % (AUTO) 2 % (0-10); HEMATOCRIT 44 % (35-52); HEMOGLOBIN 14.8 G/DL (11.5-16.0); LYMPHOCYTES # (AUTO) 1.4 X 10^3 (1.0-4.0); LYMPHOCYTES % (AUTO) 18 % (12-44); MEAN CORPUSCULAR HEMOGLOBIN 32 PG (25-34); MEAN CORPUSCULAR HGB CONC 34 G/DL (32-36); MEAN CORPUSCULAR VOLUME 95 FL (80-99); MEAN PLATELET VOLUME 11.4 FL (7.4-10.4); MONOCYTES # (AUTO) 0.6 X 10^3 (0.0-1.0); MONOCYTES % (AUTO) 7 % (0-12); NEUTROPHILS # (AUTO) 5.7 X 10^3 (1.8-7.8); NEUTROPHILS % (AUTO) 73 % (42-75); PLATELET COUNT 242 10^3/uL (130-400); RED CELL DISTRIBUTION WIDTH 13.3 % (10.0-14.5); WHITE BLOOD COUNT 7.8 10^3/uL (4.3-11.0)
[2019-08-27 11:59] LABS: CLARITY,URINE VERY CLOUDY; COLOR,URINE OTHER; GLUCOSE, URINE (UA) NEGATIVE (NEGATIVE); KETONES,URINE 1+ (NEGATIVE); LEUKOCYTE ESTERASE ,URINE 2+ (NEGATIVE); NITRITE,URINE POSITIVE (NEGATIVE); PH,URINE 6 (5-9); PROTEIN,URINE 3+ (NEGATIVE); UROBILINOGEN,URINE 1 MG/DL (NORMAL)
[2019-08-27 12:06] LABS: BILIRUBIN,URINE 1+ (NEGATIVE)
[2019-08-27 12:11] LABS: BACTERIA,URINE LARGE /HPF
[2019-08-27 12:12] LABS: AMORPHOUS SEDIMENT,UR MOD AMOR URATES /LPF; SQUAMOUS EPITHELIAL CELL,UR 25-50 /HPF
== END 2019-08-27 12:00 | disposition home or self-care (01) ==
LOC: PREOP 11:07
PROVIDERS: ATTEND Obstetrics & Gynecology
DX: Z01.818 Encounter for other preprocedural examination (principal)
CPT/HCPCS: 36415; 81000; 85025; 86850; 86900; 86901; 87077; 87081; 87088; 87186